=== PATIENT | female | born 1945 | race Caucasian/White ===

== ENCOUNTER 2024-12-28 08:09 | Day surgery (SDC) | payer MEDICARE, OTHER ==
[~2024-12-28] VITALS: Ht 160 cm; Wt 66.6 kg
[~2024-12-28 08:09] MED LIST: Balanced Salt Epinephrine Irrigation Solution 500 mL IR SCH; Moxifloxacin HCL 0.5 MG/0.1 ML 0.4MLSYR RIGHTEYE SCH; Ondansetron 4 MG SoluTab MM PRN; PHENYLEPHRINE\\TROPICAMIDE\\TETRACAINE OPHTHALMIC DILATING SOLN RIGHTEYE PRN; Povidone-Iodine 450 DROP/30 ML Solution ONE; Povidone-Iodine 450 DROP/30 ML Solution RIGHTEYE SCH; Tetracaine HCl/Pf 0.5% Opth Soln 4 ml ONE
[2024-12-28] MEDS ORDERED: IBUP200 (08:58)
--- NOTE | 2024-12-28 09:02 | NUR ---
12/28/24 0902 Vita Mak PT STATES ANXIETY LEVEL IS 0/10 IN PREOP PT IS ON CONTINUOUS PULSE OX MONITORING CALL LIGHT IN HAND
--- NOTE | 2024-12-28 09:26 | NUR ---
12/28/24 0926 Erin Carlin 0924 BP:157/76 HR:59 O2%95 RESP:16
--- NOTE | 2024-12-28 09:41 | NUR ---
12/28/24 0941 Nydia Kaminski FRIEND NOTIFIED TO PULL CAR AROUND
== END 2024-12-28 09:59 | disposition home or self-care (01) ==
LOC: ORSCSDS 08:09
PROVIDERS: Student in an Organized Health Care Education/Training Program
PROC: 08RJ3JZ Replacement of Right Lens with Synthetic Substitute, Percutaneous Approach (ICD-10-PCS; principal; 2024-12-28 10:00)
DX: H25.813 Combined forms of age-related cataract, bilateral (principal); Z79.82 Long term (current) use of aspirin
CPT/HCPCS: A9270; V2632